=== PATIENT | male | born 1960 | race Caucasian/White ===

== ENCOUNTER 2021-10-19 12:51 | Inpatient (IN) | payer OTHER ==
[2021-10-19] VITALS (36 sets, daily range): BP systolic 91–133; BP diastolic 48–86
--- NOTE | 2021-10-19 17:04 | NUR ---
5FRTL PICC PLACED ADRIANO, PT DEVELOPED A HEMATOMA WITH RT IJ ATTEMPT WHEN HE THRASHED ABOUT WITH PLACEMENT. PRESSURE HELD FOR OVER 5 MIN AND PRESSURE DRESSING PLACED. REPORT TO RN
--- NOTE | 2021-10-19 19:38 | NUR ---
iV TEAM, KARISHMA PEÑA PLACED VERIFICATION FROM [facility] 3CG CONFIRMATION SYSTEM THAT [facility] PICC IS OK TO USE. DOCUMENTATION PLACED ON CHART.
--- NOTE | 2021-10-19 19:40 | NUR ---
PT ARRIVED TO ICU AT 1405 BY [facility] AND NURSE. PT WAS SWITCHED FROM TRANSPORTED BIPAP TO HOSPITAL BIPAP AT 100%. PT WAS COLD AND THIS RN COULD NOT GET AN AXILLARY TEMP. PT WAS WARMED WITH MAKSIM HUGGER AND WARM BLANKETS. RECTAL THERMOMETER PROBE WAS PLACED. PT WAS SWITCHED FROM DOPAMINE AND LR TO DEXTROSE 5% AND LEVOPHED FOR BLOOD PRESSURE SUPPORT. PT VS ARE STABLE AND PT APPEARS COMFORTABLE. PT'S GIRLFRIEND MILIND WAS UPDATED ON PT'S CONDITION AND PLAN OF CARE. VARIOUS FAMILY MEMBERS CALLED FOR INFORMATION, BUT THIS RN INFORMED THEM THAT WITHOUT PT'S CONSENT, THEY WERE UNABLE TO GET INFO. ONLY MILIND HAS BEEN AUTHORIZED TO GET INFORMATION AT THIS TIME. PT ARRIVED WITH MEDICATIONS THAT WILL BE SENT TO PHARMACY, AND CLOTHES/ID/DENTURES ARE IN A BAG IN THE PT'S ROOM. WILL CONTINUE TO MONITOR AND FOLLOW POC.
--- NOTE | 2021-10-19 21:15 | NUR ---
MILIND, PT'S SO UPDATED ON PT'S POC.
--- NOTE | 2021-10-19 21:16 | NUR ---
bLOOD WORK DRAWN FROM PICC LINE AND SENT TO LAB. PT EXTREMELY ANXIOUS AND DIAPHORETIC. HE TOOK HIS BIPAP MASK STATING THAT HE COULDN'T BREATHE. PO-96%, RR-30'S AND 40'S BPM. MORPHINE ADMINISTERED TO PT VIA IV.
[2021-10-20] VITALS (100 sets, daily range): BP systolic 84–164; BP diastolic 26–110
--- NOTE | 2021-10-20 02:04 | NUR ---
Dr. Kilpatrick's office aware of cardiology consult
[2021-10-20 04:59] LABS: BE(vivo) -1.6 mmol/L (-2 to +3); HCO3 21.6 mmol/L (22.0-26.0); PCO2 31.8 mmHg (35.0-45.0); PO2 103.6 mmHg (80.0-100.0)
[2021-10-20 06:16] LABS: HEMATOCRIT 35.2 % (42.0-52.0); MCH 30.6 pg (26.0-34.0); MCV 89.8 fL (80.0-100.0); RBC 3.92 mil/uL (4.50-6.00); RDW 14.2 % (10.5-14.5); WBC 6.9 thou/uL (4.0-11.0)
[2021-10-20 06:29] LABS: ALBUMIN 1.7 g/dL (3.4-5.0); CALCIUM 7.3 mg/dL (8.5-10.1); CREATININE 1.2 mg/dL (0.7-1.3); POTASSIUM 3.4 mmol/L (3.5-5.1); TOTAL BILIRUBIN 0.5 mg/dL (0.2-1.0); TOTAL PROTEIN 5.6 g/dL (6.4-8.2)
--- NOTE | 2021-10-20 08:14 | EKG ---
[place] [address] [facility] [place] [address] ELECTROCARDIOGRAM REPORT Name: CARI JIMENEZ Room #: 247- ADM IN M.R.#: [id number] Admission: 10/19/21 Attend Phys: Will Leon Discharge: Date of : 60 Report #: [id number] [facility] Test Date: 2021-10-20 Test Time: 00:25:24 Pat Name: CARI JIMENEZ Department: Room: [facility] Gender: M Carriage Operator: : 1960 Requested By: Ruby Chau Order Number: [id number] MD: Driss Jimenez Measurements Intervals [place] Rate: 73 P: 66 LA: 149 QRS: 30 QRSD: 131 T: QT: 479 QTc: 528 Interpretive Statements Sinus rhythm Nonspecific ST and T wave abnormality No previous ECG available for comparison Electronically Signed On 10-20-2021 8:14:09 QUILL COLLECTOR by Driss Jimenez [email or web address] <ELECTRONICALLY SIGNED> By: Driss Jimenez MD, [facility] 10/20/21 0814 0025 0025 Driss Jimenez MD, FACC /EPI
--- NOTE | 2021-10-20 09:00 | NUR ---
60 YEAR OLD MALE, TRANSFERRED FROM [facility], He was SEEN THERE WITH 3 WEEKS AGO FOR SHORTNESS OF AIR, COVID POSITIVE, HYPOTENSION. OXYGEN SATS 65% ROOM AIR. HE IS A DNR. UNABLE TO VISIT WITH HIM AT THIS TIME, RESP THERAPY AND NURSE IN THE ROOM WORKING WITH HIM REALTED TO LOW OXYGEN SATS.
--- NOTE | 2021-10-20 11:42 | 2DMMODE ---
[address] [address] 2 D/M-MODE ECHOCARDIOGRAM Name: CARI JIMENEZ Room #: 247-P ADM IN M.R.#: [id number] Admission: 10/19/21 Attend Phys: Will Leon Discharge: Date of : 60 Report #: [id number] THIS REPORT FOR: cc: FAM - Family physician unknown FAM - Family physician unknown Sekou Faye MD ~ APPROVED REPORT Study performed: 10/20/2021 10:20:20 EXAM: Comprehensive 2D, Doppler, and color-flow Echocardiogram Patient Location: ICU Room #: [facility] Status: routine BSA: 1.86 Rhythm: NSR Other Information Study Quality: Technically Difficult Technically limited study due to inability to position patient, patient on ventilator. Indications Septic Shock Elevated Troponin 2D Dimensions IVC: 24.00 mm Tricuspid Valve TR Peak Efrain.: 2.53 m/s TR Peak Gr.: 25.65 mmHg PA Pressure: 36.00 mmHg Left Ventricle The left ventricle is normal size. There is normal left ventricular wall thickness. Left ventricular systolic function is moderate to severely decreased. LVEF is 30-35%. This study is not technically sufficient to allow evaluation of the LV diastolic function. Right Ventricle Right ventricle is dilated. Right ventricle is hypokinetic. There is a small mobile mass at the free wall of the right ventricle, may [address] [place] [address] 2 D/M-MODE ECHOCARDIOGRAM Name: CARI JIMENEZ Room #: 247-P ADM IN M.R.#: [id number] Admission: 10/19/21 Attend Phys: Will Agudelo Discharge: Date of : 60 Report #: [id number] represent thrombus. Atria Left atrium is at the upper limits of normal. Right atrium is dilated. Aortic Valve The aortic valve is normal in structure. No aortic regurgitation is present. There is no aortic valvular stenosis. Mitral Valve The mitral valve is normal in structure. Mild mitral regurgitation. No evidence of mitral valve stenosis. Tricuspid Valve The tricuspid valve is normal in structure. There is mild tricuspid regurgitation. Estimated PAP 36 mmHg. There is mild pulmonary hypertension. Pulmonic Valve The pulmonary valve is normal in structure. There is no pulmonic valvular regurgitation. Great Vessels The aortic root is normal in size. IVC is dilated and collapses <50% with inspiration. Pericardium There is no pericardial effusion. <Conclusion> The left ventricle is normal size. Left ventricular systolic function is moderate to severely decreased. LVEF is 30-35%. Right ventricle is dilated. Right ventricle is hypokinetic. The aortic valve is normal in structure. Mild mitral regurgitation. There is mild tricuspid regurgitation. Estimated PAP 36 mmHg. There is a small mobile mass at the free wall of the right ventricle, may represent thrombus. <ELECTRONICALLY SIGNED> By: Sekou Faye MD 10/20/21 1142 41 41 Sekou Faye MD /INF
--- NOTE | 2021-10-20 11:49 | HC ---
[facility] [place] [address] CONSULTATION Name: CARI JIMENEZ Room #: [address] [place] [address] IN M.R.#: [id number] Admission: 10/19/21 Attend Phys: Will Leon Discharge: Date of : 60 Report #: [id number] THIS REPORT FOR: cc: FAM - Family physician unknown FAM - Family physician unknown Bud Pitt MD ~ DATE OF SERVICE: 10/19/2021 INFECTIOUS DISEASE CONSULTATION ATTENDING PHYSICIAN: Dr. Lazcano. REASON FOR EVALUATION: Septic shock in setting of COVID-19 infection, complicated by severe pneumonitis, respiratory failure. HISTORY OF PRESENT ILLNESS: Chart reviewed. The patient examined. This is a 60-year-old gentleman, history of reflux. He was transferred from outside hospital, apparently he had been ill for the last 3 weeks, referred to as a positive COVID test during that time. He was progressively dyspneic, was found to have low saturations in the 60s on room air. He was initiated on therapy. In addition, that was hypotensive, ultimately required pressor support as well. He had been started on dexamethasone and fluids as well as dopamine on transfer. At this point, he is not responsive, maintained on BiPAP, FiO2 of 100%, also continued on pressors with norepinephrine. He has been on therapy with Levaquin. ALLERGIES: None. CURRENT MEDICATIONS: Include enoxaparin, famotidine, hydrocortisone, Levaquin, ondansetron, morphine as needed. PAST MEDICAL HISTORY: Recent COVID-19 infection, reflux, depression. SOCIAL HISTORY, FAMILY HISTORY: Available in chart. REVIEW OF SYSTEMS: Not obtainable. PHYSICAL EXAMINATION: GENERAL: He appears chronically ill. He is essentially nonresponsive at this point. VITAL SIGNS: Pending. Apparently afebrile, borderline hypotensive, saturation 94% on a BiPAP of 100%. HEENT: Full mask in place. NECK: Supple. LUNGS: Bilateral scattered coarse breath sounds. HEART: Distant. I do not appreciate a murmur. [facility] [address] [place] [address] CONSULTATION Name: CARI JIMENEZ Room #: [address] [place] [address] IN M.R.#: [id number] Admission: 10/19/21 Attend Phys: Will Leon Discharge: Date of : 60 Report #: [id number] ABDOMEN: Mildly distended, somewhat firm, nontender. No peritoneal signs. GENITOURINARY AND RECTAL: Deferred. LABORATORY DATA: Reviewed from outside hospital. ASSESSMENT AND PLAN: COVID-19 infection, complicated by pneumonitis and severe respiratory failure and encephalopathy. We will try to obtain additional results. At this point, given the 3-week window he has been in all that remdesivir is likely to help. Continue corticosteroids. We will adjust antimicrobial therapy, would be concerned about adverse drug effect due to the Levaquin given the marked encephalopathy. It is not clear if he had any long periods of low oxygen saturations that may be contributed to sort of a anoxic problem. It is notable throughout the records from the outside hospital, he is not inclined to undergo any heroic measures. He is probably a DNR at this point. Continue supportive care. <ELECTRONICALLY SIGNED> By: Bud Pitt MD 10/20/21 1149 1505 0149 Bud Pitt MD /nt
--- NOTE | 2021-10-20 19:27 | NUR ---
PT AT 8A, EXPRESSD HE WANTED HIS GF O MAKE DECISIONS. BUT HIS SON AND BROTHER COULD GET INFORMAION. PT AT 93 GO VERY ANXIOUS TOOK OFF BIPAP AND DESAT AIVAN GIVEN FOE SEDATION.
[2021-10-21] VITALS (106 sets, daily range): BP systolic 95–191; BP diastolic 67–117
--- NOTE | 2021-10-21 01:30 | NUR ---
0100: Pt became restless, pulling medical equip and trying to get out of bed. PRN ativan and morphine adm. Restraints was ordered and applied
--- NOTE | 2021-10-21 07:40 | NUR ---
Pt is not progressing towards plan of care as evidenced by restlessness and desaturation when pt is not sedated
[2021-10-21 09:45] LABS: EOSINOPHILS 0.1 % (0.0-3.0); HEMOGLOBIN 11.7 gm/dL (14.0-18.0); LYMPHOCYTES 3.9 % (24.0-44.0); MCH 29.4 pg (26.0-34.0); MCHC 32.6 g/dL (28.0-37.0); MCV 90.5 fL (80.0-100.0); MONOCYTES 1.8 % (1.0-8.0); PLATELET COUNT 153 thou/uL (150-400); POLYS 94.2 % (36.0-66.0); RBC 3.98 mil/uL (4.50-6.00); RDW 14.4 % (10.5-14.5); WBC 6.4 thou/uL (4.0-11.0)
--- NOTE | 2021-10-21 09:55 | NUR ---
RN SPOKE WITH PT NIECE AND UPDATED HER. RN ALSO SPOKE WITH THE GIRLFRIEND OF PT AND UPDATED HER. RN WILL CONTINUE TO FOLLOW PLAN OF CARE.
[2021-10-21 09:59] LABS: ALBUMIN 1.6 g/dL (3.4-5.0); CALCIUM 7.3 mg/dL (8.5-10.1); CREATININE 1.1 mg/dL (0.7-1.3); POTASSIUM 4.5 mmol/L (3.5-5.1); TOTAL BILIRUBIN 0.6 mg/dL (0.2-1.0); TOTAL PROTEIN 5.1 g/dL (6.4-8.2)
--- NOTE | 2021-10-21 14:00 | NUR ---
Discussed during unit rounds with pulmonary MD and during los with the attending physician. Requiring restraints, using full face mask for bipap 100%, precedex gtt. No anticpated dc over the weekend. Will cont following as needed. DNR. attending physician to discuss with his girlfriend and family about a palliative consult of ordered and if needed.
[2021-10-22] VITALS (23 sets, daily range): BP systolic 73–167; BP diastolic 49–100
--- NOTE | 2021-10-22 00:12 | NUR ---
2100: pt became agitated,developed fever, became hypertensive, tachypneic and saturated below 90%. SAND SHOVELER was notified of the pt's condition. an order of acetaminophen supp and metoprolol was placed and administered icebags were also utilized to managed pt's temp. pt gradually stabilized after nursing interventions.
--- NOTE | 2021-10-22 10:45 | NUR ---
PT FAMILY IS OUTSIDE PT ROOM. RN PAGED WILLAM AND WAITING FOR A CALL BACK. DR QUARLES STATED HE WOULD LIKE TO TALK WITH FAMILY BEFORE PALLLIATIVE CARE IS STARTED. FAMILY CALM AND COOPERATIVE. WILL WAIT TO HEAR BACK FROM WILLAM.
--- NOTE | 2021-10-22 23:51 | NUR ---
Pt at 1855. packet checklist requirements completed. Security picked the body at 1100hrs.
== END 2021-10-23 02:47 | DRG 871 ==
LOC: ICU 12:51
PROVIDERS: Specialist; ADMIT Hospitalist; ATTEND Hospitalist
DX: A41.9 Sepsis, unspecified organism (principal); R65.21 Severe sepsis with septic shock; U07.1 COVID-19; J12.82 Pneumonia due to coronavirus disease 2019; J80 Acute respiratory distress syndrome; K72.00 Acute and subacute hepatic failure without coma; N17.9 Acute kidney failure, unspecified; G93.40 Encephalopathy, unspecified; I42.9 Cardiomyopathy, unspecified; E11.9 Type 2 diabetes mellitus without complications; I10 Essential (primary) hypertension; Z66 Do not resuscitate
CPT/HCPCS: 10078; 27000